=== PATIENT | female | born 1975 | race Caucasian/White ===

== ENCOUNTER 2017-01-24 19:37 | Emergency (ER) | payer OTHER ==
[2017-01-24 20:06] VITALS: BP 150/78
--- NOTE | 2017-01-24 21:00 | UC ---
Lower Extremity/Ankle HPI - HPI Summary HPI Summary: Rolled L ankle walking on pavement 6 days ago. Has sprained ankles multiple times, but no fx or sx. Here because lateral pain is not getting better. - History of Current Complaint Chief Complaint: EDExtremityLower Stated Complaint: ANKLE INJURY Time Seen by Provider: 01/24/17 20:47 Hx Obtained From: Patient Hx Last Menstrual Period: December 18 ?: No Onset/Duration: Sudden Onset Severity Initially: Moderate Severity Currently: Moderate Aggravating Factor(s): Standing, Ambulation Alleviating Factor(s): Rest Able to Bear Weight: Yes - Allergies/Home Medications Allergies/Adverse Reactions: Allergies Allergy/AdvReac Type Severity Reaction Status Date / Time Penicillins [PCN] Allergy Itching Verified 01/24/17 20:06 Home Medications: Home Medications Hydrochlorothiazide [Microzide-] 12.5 mg PO DAILY 01/24/17 [History Confirmed ] Loratadine & Pseudoephedrine [Claritin-D 12 Hour 5-120 mg] 01/24/17 [History] Montelukast Sodium TAB* [Singulair TAB*] 10 mg PO BEDTIME 01/24/17 [History Confirmed 01/24/17] Zolpidem Tartrate [Ambien] 10 mg PO 01/24/17 [History] PMH/Surg Hx/FS Hx/Imm Hx Respiratory History Of: Reports: Asthma - Surgical History Surgical History: None Other Surgical History: L ACL repair approx 2001 - Family History Known Family History: Positive: Other - no hx of marfan's - Social History Lives: With Family Alcohol Use: Weekly Substance Use Type: None Smoking Status (MU): Never Smoked Tobacco Review of Systems Constitutional: Negative Skin: Negative Eyes: Negative ENT: Negative Respiratory: Negative Cardiovascular: Negative Gastrointestinal: Negative Genitourinary: Negative Motor: Negative Neurovascular: Negative Musculoskeletal: Other: - L ankle pain Neurological: Negative Psychological: Negative All Other Systems Reviewed And Are Negative: Yes Physical Exam Triage Information Reviewed: Yes Appearance: Well-Appearing, No Pain Distress, Obese Vital Signs: Initial Vital Signs Temp 98.6 F 01/24/17 19:58 Pulse 79 01/24/17 19:58 Resp 18 01/24/17 19:58 BP 150/78 01/24/17 19:58 Pulse Ox 98 01/24/17 19:58 Vital Signs Reviewed: Yes Eye Exam: Normal Eyes: Positive: Conjunctiva Clear ENT Exam: Normal ENT: Positive: Normal ENT inspection, Hearing grossly normal, Pharynx normal, TMs normal Dental Exam: Normal Neck exam: Normal Neck: Positive: Supple, Nontender, No Lymphadenopathy Respiratory Exam: Normal Respiratory: Positive: Chest non-tender, Lungs clear, Normal breath sounds, No respiratory distress Cardiovascular Exam: Normal Cardiovascular: Positive: RRR, No Murmur Musculoskeletal Exam: Other - pt tenderness over L lateral malleolus Musculoskeletal: Positive: Strength Intact, ROM Intact Neurological Exam: Normal Neurological: Positive: Alert Psychological Exam: Normal Skin Exam: Normal Lower Extremity Course/Dx - Differential Dx/Diagnosis Provider Diagnoses: L ankle sprain. Elevated blood pressure due to pain Discharge - Discharge Plan Condition: Stable Disposition: HOME Patient Education Materials: Ankle Sprain (ED) Referrals: Efrem Medley MD [Medical Doctor] - 2 Weeks Additional Instructions: As we discussed, I recommend you follow up with the orthopedist if you do not see steady improvement with continued rest and protection. You can take ibuprofen 400-600mg three times per day as needed for pain.
--- NOTE | 2017-01-24 21:23 | RAD ---
INDICATION: Lateral ankle pain 6 days after injury COMPARISON: None. TECHNIQUE: 3 views of the left ankle were obtained. FINDINGS: Mild soft tissue swelling is seen overlying the medial greater than lateral malleolus. The well corticated bones exhibit normal alignment. Joint spaces appear maintained. No fracture is seen. IMPRESSION: SOFT TISSUE SWELLING WITHOUT RADIOGRAPHICALLY APPARENT FRACTURE OR DISLOCATION. If the patient's symptoms persist, follow-up imaging is recommended.
== END 2017-01-24 21:42 | disposition home or self-care (01) ==
LOC: UCEAST 19:37
DX: S93.402A Sprain of unspecified ligament of left ankle, initial encounter (principal); X50.1XXA Overexertion from prolonged static or awkward postures, initial encounter; Y93.9 Activity, unspecified; Y92.9 Unspecified place or not applicable; R03.0 Elevated blood-pressure reading, without diagnosis of hypertension; J45.909 Unspecified asthma, uncomplicated; E66.9 Obesity, unspecified; Z88.0 Allergy status to penicillin
CPT/HCPCS: 99212; G0463

== ENCOUNTER 2019-09-27 14:04 | Emergency (ER) | payer BC, OTHER ==
[2019-09-27 14:27] VITALS: BP 148/82
--- NOTE | 2019-09-27 14:39 | UC ---
Ear Complaint HPI - HPI Summary HPI Summary: patient reports left ear pain and sinus pain---states she gets chronic ear aches and does she an ENT---states this has been going on for 1 week--last time she used antibiotics was 2 months ago - History of Current Complaint Chief Complaint: UCGeneralIllness Stated Complaint: ear ACHE, AND SINUS CONGESTION Time Seen by Provider: 09/27/19 14:31 Hx Obtained From: Patient Hx Last Menstrual Period: 09/08 ?: No Onset/Duration: Sudden Onset, Lasting Weeks - 1, Still Present Severity Initially: Mild Severity Currently: Mild - Allergies/Home Medications Allergies/Adverse Reactions: Allergies Allergy/AdvReac Type Severity Reaction Status Date / Time Penicillins Allergy Itching Verified 09/27/19 14:27 PMH/Surg Hx/FS Hx/Imm Hx Previously Healthy: No - multiple dx with otitis media - Surgical History Surgical History: None Other Surgical History: L ACL repair approx 2001 - Family History Known Family History: Positive: Other - no hx of marfan's - Social History Occupation: Employed Full-time Lives: With Family Alcohol Use: Occasionally Substance Use Type: None Smoking Status (MU): Never Smoked Tobacco Review of Systems All Other Systems Reviewed And Are Negative: Yes Constitutional: Positive: Negative Skin: Positive: Negative Eyes: Positive: Negative ENT: Positive: Ear Ache - l>r, Sinus Congestion, Sinus Pain/Tenderness Respiratory: Positive: Negative Cardiovascular: Positive: Negative Gastrointestinal: Positive: Negative Genitourinary: Positive: Negative Motor: Positive: Negative Neurovascular: Positive: Negative Musculoskeletal: Positive: Negative Neurological: Positive: Negative Psychological: Positive: Negative Is Patient Immunocompromised?: No Physical Exam Triage Information Reviewed: Yes Appearance: Well-Appearing, No Pain Distress, Obese Vital Signs: Initial Vital Signs Temp 98.6 F 09/27/19 14:23 Pulse 81 09/27/19 14:23 Resp 19 09/27/19 14:23 BP 148/82 09/27/19 14:23 Pulse Ox 99 09/27/19 14:23 Vital Signs Reviewed: Yes Eye Exam: Normal Eyes: Positive: Conjunctiva Clear ENT Exam: Normal ENT: Positive: Normal ENT inspection, Hearing grossly normal, Nasal congestion, TMs normal - l cloudy and buldging, Sinus tenderness. Negative: Trismus, Muffled voice, Hoarse voice Dental Exam: Normal Neck exam: Normal Neck: Positive: Supple, Nontender Respiratory Exam: Normal Respiratory: Positive: Chest non-tender, Lungs clear, Normal breath sounds, No respiratory distress, No accessory muscle use Cardiovascular Exam: Normal Cardiovascular: Positive: RRR, No Murmur, Pulses Normal, Brisk Capillary Refill Musculoskeletal Exam: Normal Musculoskeletal: Positive: Strength Intact, ROM Intact, No Edema Neurological Exam: Normal Neurological: Positive: Alert, Muscle Tone Normal Psychological Exam: Normal Skin Exam: Normal Ear Complaint Course/Dx - Course Course Of Treatment: doxycycline, flonase tylenol, ibuprofen increase fluid follow with pcp prn - Differential Dx/Diagnosis Provider Diagnosis: Left otitis media, Sinusitis Discharge ED - Sign-Out/Discharge Documenting (check all that apply): Patient Departure All imaging exams completed and their final reports reviewed: No Studies - Discharge Plan Condition: Stable Disposition: HOME Prescriptions: DOXYcycline CAP(*) [DOXYcycline 100MG CAP(*)] 100 mg PO BID #20 cap Fluticasone NASAL SPRAY 50MCG* [Flonase NASAL SPRAY 50MCG*] 2 spray BOTH NARES DAILY #1 btl Patient Education Materials: Ear Infection (ED), Hypertension (ED), How to Use Nasal [place] (ED) Referrals: Hai GUILLEN,Amber Degroot [Primary Care Provider] - 2 Weeks - Billing Disposition and Condition Condition: STABLE Disposition: Home
== END 2019-09-27 15:13 | disposition home or self-care (01) ==
LOC: UCEAST 14:04
DX: H66.92 Otitis media, unspecified, left ear (principal); J32.9 Chronic sinusitis, unspecified; Z88.0 Allergy status to penicillin
CPT/HCPCS: 99212; G0463